=== PATIENT | male | born 1980 | race Two or more races ===

== ENCOUNTER 2017-09-20 10:51 | Emergency (ER) | payer MEDICAID ==
[~2017-09-20] VITALS: Ht 193 cm; Wt 140.6 kg
[2017-09-20 12:56] VITALS: BP 158/99
--- NOTE | 2017-09-20 12:59 | Emergency Room Report ---
History of Present Illness General Chief Complaint: General Complaint Source: Patient Present Illness HPI 37-year-old male, presenting with bump behind right ear for more than one month. States that it hurts sometimes. No fever no chills. No redness or drainage from the area. No other complaints Allergies: Coded Allergies: No Known Allergies (Unverified , 09/20/17) Patient History Past Medical History: see triage record Past Surgical History: none Pertinent Family History: none Reviewed Nursing Documentation: PMH: Agreed, PSxH: Agreed Nursing Documentation-PMH Past Medical History: No Stated History Review of Systems All Other Systems: negative except mentioned in HPI Physical Exam Vital Signs Date Time Temp Pulse Resp B/P (MAP) Pulse Ox O2 Delivery O2 Flow Rate FiO2 09/20/17 11:00 97.7 67 16 158/112 96 Room Air 97.7 Sp02 EP Interpretation: reviewed, normal General Appearance: normal inspection, well appearing, no apparent distress, alert, GCS 15, non-toxic Head: normocephalic, atraumatic Eyes: bilateral eye normal inspection, bilateral eye PERRL, bilateral eye EOMI ENT: normal ENT inspection, normal pharynx, normal voice, moist mucus membranes Neck: normal inspection, full range of motion, supple Respiratory: normal inspection, lungs clear, normal breath sounds, no respiratory distress, no retraction, no wheezing, speaking full sentences, chest symmetrical Cardiovascular #1: normal inspection, regular rate, rhythm, normal capillary refill Cardiovascular #2: 2+ radial (R), 2+ radial (L) Gastrointestinal: normal inspection, non tender, soft, non-distended, no guarding Genitourinary: no CVA tenderness Musculoskeletal: normal inspection, back normal, normal range of motion, non- tender Neurologic: normal inspection, alert, oriented x3, responsive, motor strength/ tone normal, sensory intact, normal gait, speech normal Psychiatric: normal inspection, judgement/insight normal, memory normal Skin: normal color, no rash, warm/dry, well hydrated, normal turgor, other - Very mobile 2 x 2 centimeters cystlike structure behind left ear, mildly tender to palpation, no overlying erythema, no fluctuance Medical Decision Making Diagnostic Impression: Primary Impression: Benign cyst of skin ER Course 37-year-old male with left-sided lump behind left ear DDX: Benign cyst versus lipoma Clinically it does not appear to be abscess, has been there for more than one month, no overlying erythema or fluctuance Plan: None ER course: Patient has remained stable during ED stay.. Disposition: Patient is to be discharged to home. Patient is instructed to follow up with their primary care doctor and a insurance agents supervisor in one week Please note that this Emergency Department Report was dictated using [employer] manager technology software, occasionally this can lead to erroneous entry secondary to interpretation by the dictation equipment Last Vital Signs Date Time Temp Pulse Resp B/P (MAP) Pulse Ox O2 Delivery O2 Flow Rate FiO2 09/20/17 11:00 97.7 67 16 158/112 96 Room Air 97.7 Disposition: HOME, SELF-CARE Condition: Improved Referrals: NOT CHOSEN IPA/,REFERRING (PCP) Additional Instructions: PLEASE FOLLOW UP WITH YOUR PRIMARY CARE DOCTOR PLEASE SEE A HEDGE TRIMMER IN 1 WEEK PLEASE RETURN TO THE EMERGENCY ROOM IF YOUR SKIN CYST BECOMES RED, SWOLLEN, YOU HAVE SPREAD OF RASH, OR FEVER AND CHILLS. Eze Pinto M.D. Sep 20, 2017 12:59
== END 2017-09-20 11:45 | disposition home or self-care (01) ==
LOC: EMR 11:30
DX: L72.9 Follicular cyst of the skin and subcutaneous tissue, unspecified (principal)
CPT/HCPCS: 99282